=== PATIENT | male | born 1975 | race Caucasian/White ===

== ENCOUNTER 2021-10-16 11:47 | Emergency (ER) | payer SELFPAY ==
[~2021-10-16] VITALS: Ht 170.2 cm; Wt 91.0 kg
[2021-10-16 12:14] VITALS: BP 129/89
[2021-10-16] MEDS ORDERED: ONDANSETRON HCL 4MG TABLET PO ONE (15:00)
[2021-10-16 15:25] LABS: BASOPHILS % 0.5 % (0.0-2.0); EOSINOPHILS % 1.1 % (0.0-5.0); HEMOGLOBIN. 16.2 g/dL (14.0-18.0); LYMPHOCYTES % 37.2 % (20.0-50.0); MEAN CORPUSCULAR HEMOGLOBIN 27.9 pg (28.0-32.0); MEAN PLATELET VOLUME 9.3 fl (7.4-10.4); MONOCYTES % 11.6 % (2.0-8.0); NEUTROPHILS % 49.6 % (40.0-76.0); PLATELET 182 x1000/uL (130-400); RED BLOOD CELL COUNT 5.78 mill/uL (4.7-6.1); RED CELL DISTRIBUTION WIDTH 13.9 % (11.6-14.6)
[2021-10-16 15:31] LABS: CHLORIDE 104 mEq/L (98-107)
[2021-10-16] MEDS ORDERED: ONDA4TAB11 PO (16:08)
== END 2021-10-16 16:20 | disposition home or self-care (01) ==
LOC: ER 11:47
DX: R11.0 Nausea (principal); R19.7 Diarrhea, unspecified; E11.9 Type 2 diabetes mellitus without complications
CPT/HCPCS: 36415; 80053; 85025; 99283; Q0162